=== PATIENT | female | born 1975 | race Caucasian/White ===

== ENCOUNTER 2017-03-14 15:44 | Emergency (ER) | payer BC ==
[2017-03-14 15:58] VITALS: BP 98/68; PULSE 104; TEMP 99.1; BMI 25.8
--- NOTE | 2017-03-14 16:56 | PDOC ---
Attending Attestation - Resident Resident Name: Noah Burton - ED Attending Attestation I have performed the following: I have examined & evaluated the patient, The case was reviewed & discussed with the resident, I agree w/resident's findings & plan, Exceptions are as noted - HPI HPI: 41 yo F history hypothyroid presents with epigastric pain and diarrhea for the past few days. She denies fever, vomiting. She states that the pain is colicky and radiates diffusely. No prior similar symptoms. She has history of 2 c- sections and a cholecystectomy. She still has her appendix. - Physicial Exam PE: GENERAL: Awake, alert, and fully oriented. Appears uncomfortable. HEAD: No signs of trauma EYES: PERRLA, EOMI, sclera anicteric, conjunctiva clear ENT: Auricles normal inspection, hearing grossly normal, nares patent, oropharynx clear without exudates. Dry mucosa NECK: Normal ROM, supple, no lymphadenopathy, JVD, or masses LUNGS: Breath sounds equal, clear to auscultation bilaterally. No wheezes, and no crackles HEART: Regular rate and rhythm, normal S1 and S2, no murmurs, rubs or gallops ABDOMEN: Soft, +epigastric and RLQ tenderness with guarding, hyperactive bowel sounds. No rebound. No masses EXTREMITIES: Normal range of motion, no edema. No clubbing or cyanosis. No cords, erythema, or tenderness NEUROLOGICAL: Cranial nerves II through XII grossly intact. Normal speech, normal gait SKIN: Warm, Dry, normal turgor, no rashes or lesions noted. - Medical Decision Making 41 yo F history prior abdominal surgeries presents with abd pain and diarrhea. Diffusely tender, but worse in RLQ and epigastric area. Will send labs including CBC, CMP, lipase, and UA. Will obtain CT to r/o SBO vs appy.
[2017-03-14] MEDS ORDERED: SODIUM CHLORIDE 0.9% 1000 ML INFUS.BAG IV ONE (17:06)
[2017-03-14] MEDS ORDERED: ONDANSETRON 4 MG/2 ML VIAL IVPUSH ONE (17:06)
--- NOTE | 2017-03-14 17:20 | PDOC ---
History of Present Illness - General Chief Complaint: Pain, Acute Stated Complaint: ABD PAIN Time Seen by Provider: 03/14/17 16:51 History Source: Patient Exam Limitations: No Limitations - History of Present Illness Initial Comments: 03/14/17 17:12 The patient is a 41F with a PMH of hypothyroidism who is presenting with epigastric pain and diarrhea x 3 days. The pain and diarrhea has been constant, is worse today, and now is radiating everywhere (nowhere specific). She has 2 episodes of questionable syncope today, with no aura and no disorientation after the episode. She states the first time she was laying down and then was awoken up by her neice, and the second time she was on the stairs and felt lightheaded then sat down for 5 minutes. No head trauma and no LOC. She is unsure if the pain is related to her food, but she states that she may have eaten some weird foods when she traveled to [place] and came back on Friday. No sick contacts. PSH: cholecystectomy and 2 CS Allergies: NKDA Social: none Past History - Past Medical History Allergies/Adverse Reactions: Allergies Allergy/AdvReac Type Severity Reaction Status Date / Time No Known Allergies Allergy Verified 03/14/17 15:55 Seizures: Yes - Surgical History Cholecystectomy: Yes - Psycho/Social/Smoking Cessation Hx Suicidal Ideation: No Smoking History: Never smoked Review of Systems - Review of Systems Able to Perform ROS?: Yes Is the patient limited [place] proficient: No Constitutional: Yes: Fever. No: Chills Respiratory: No: Shortness of Breath Cardiac (ROS): No: Chest Pain ABD/GI: Yes: Diarrhea, Nausea, Vomiting, Other (Epigastric abd pain). No: Constipated : No: Burning, Dysuria, Discharge Neurological: Yes: Weakness *Physical Exam - Vital Signs Last Vital Signs Temp Pulse Resp BP Pulse Ox 99.1 F 104 H 16 98/68 99 03/14/17 15:55 03/14/17 15:55 03/14/17 15:55 03/14/17 15:55 03/14/17 15:55 - Physical Exam General Appearance: Yes: Nourished, Appropriately Dressed, Mild Distress. No: Apparent Distress, Disheveled, Alcohol on Breath, Obese, Thin HEENT: positive: Normal Voice Respiratory/Chest: positive: Lungs Clear, Normal Breath Sounds. negative: Chest Tender, Respiratory Distress Cardiovascular: positive: Regular Rhythm, Regular Rate, S1, S2 Gastrointestinal/Abdominal: positive: Tender (epigastric and periumbilical), Flat, Soft, Guarding, Rebound, Tenderness Musculoskeletal: negative: CVA Tenderness (R), CVA Tenderness (L) Extremity: positive: Normal Inspection, Normal Range of Motion. negative: Pedal Edema, Swelling Integumentary: positive: Normal Color, Dry, Warm Neurologic: positive: Fully Oriented, Alert, Normal Mood/Affect, Motor Strength 5/5
[2017-03-14] MEDS ORDERED: ONDANSETRON 4 MG/2 ML VIAL ONE (17:24)
[2017-03-14 17:42] LABS: BASOPHIL 0.3 % (0-2.0); EOSINOPHIL 0.5 % (0-4.5); MCH 29.3 pg (25.7-33.7); MCHC 33.4 g/dl (32.0-36.0); MEAN CELL VOLUME 87.7 fl (80-96); MEAN PLT VOLUME 8.4 fl (7.5-11.1); NEUTROPHILS 87.2 % (42.8-82.8); PLATELET COUNT 166 K/MM3 (134-434); RDW 13.2 % (11.6-15.6)
[2017-03-14] MEDS ORDERED: morphine CARPU-JECT 4 MG/1 ML DISP.SYRIN IVPUSH ONE (18:07)
[2017-03-14] MEDS ORDERED: morphine CARPU-JECT 4 MG/1 ML DISP.SYRIN ONE (18:09)
[2017-03-14 18:17] LABS: ALBUMIN 3.7 g/dl (3.4-5.0); ANION GAP 10 (8-16); CALCIUM 8.1 mg/dL (8.5-10.1); CO2 19 mmol/L (21-32); CREATININE 0.6 mg/dL (0.55-1.02); GLUCOSE,RANDOM 104 mg/dL (74-106); SGOT/AST 21 U/L (15-37); SGPT/ALT 31 U/L (12-78)
[2017-03-14 18:19] LABS: ALK PHOS 65 U/L (45-117); BILIRUBIN,TOTAL 0.3 mg/dL (0.2-1.0); TOT PROT 7.2 g/dl (6.4-8.2)
[2017-03-14 19:43] LABS: URINE APPEARANCE CLEAR; URINE BILIRUBIN NEGATIVE (NEGATIVE); URINE BLOOD 1+ (NEGATIVE); URINE COLOR COLORLESS; URINE GLUCOSE (UA) NEGATIVE (NEGATIVE); URINE KETONE NEGATIVE (NEGATIVE); URINE LEUK ESTERASE NEGATIVE (NEGATIVE); URINE NITRITE NEGATIVE (NEGATIVE); URINE PROTEIN NEGATIVE (NEGATIVE); URINE UROBILINOGEN NEGATIVE mg/dL (0.2-1.0)
[2017-03-14 19:46] LABS: URINE BACTERIA RARE /hpf (NONE SEEN); URINE RBC <1 /hpf (0-3)
--- NOTE | 2017-03-14 21:49 | PDOC ---
*Physical Exam - Vital Signs Last Vital Signs Temp Pulse Resp BP Pulse Ox 99.1 F 104 H 16 98/68 99 03/14/17 15:55 03/14/17 15:55 03/14/17 15:55 03/14/17 15:55 03/14/17 15:55 ED Treatment Course - LABORATORY CBC & Chemistry Diagram: 03/14/17 17:30 03/14/17 17:30 - ADDITIONAL ORDERS Additional order review: Laboratory Results 03/14/17 03/14/17 03/14/17 19:05 17:30 17:30 Sodium 136 Potassium 3.9 Chloride 107 Carbon Dioxide 19 L Anion Gap 10 BUN 11 Creatinine 0.6 Creat Clearance w eGFR > 60 Random Glucose 104 Calcium 8.1 L Total Bilirubin 0.3 AST 21 ALT 31 Alkaline Phosphatase 65 Total Protein 7.2 Albumin 3.7 Lipase 124 Serum , Qual Negative Urine Color Colorless Urine Appearance Clear Urine pH 6.0 Urine Protein Negative Urine Glucose (UA) Negative Urine Ketones Negative Urine Blood 1+ H Urine Nitrite Negative Urine Bilirubin Negative Urine Urobilinogen Negative Ur Leukocyte Esterase Negative Urine RBC <1 Urine WBC None Urine Bacteria Rare 03/14/17 17:30 RBC 4.49 MCV 87.7 MCHC 33.4 RDW 13.2 MPV 8.4 Neutrophils % 87.2 H Lymphocytes % 5.7 L Monocytes % 6.3 Eosinophils % 0.5 Basophils % 0.3 - RADIOLOGY Radiology Studies Ordered: Category Date Time Status ABDOMEN & PELVIS CT WITH CONTR [CT] Stat CT Scan 03/14/17 19:49 Completed - Medications Given in the ED: ED Medications Discontinued Medications Generic Name Dose Route Start Last Admin Trade Name Bi PRN Reason Stop Dose Admin Morphine Sulfate 4 mg 03/14/17 18:07 03/14/17 18:20 Morphine Injection - IVPUSH 03/14/17 18:08 4 mg ONCE ONE Administration Ondansetron HCl 4 mg 03/14/17 17:06 03/14/17 17:36 Zofran Injection IVPUSH 03/14/17 17:07 4 mg ONCE ONE Administration Sodium Chloride 1,000 ml 03/14/17 17:06 03/14/17 17:36 Normal Saline - IV 03/14/17 17:07 1,000 ml ONCE ONE Administration Medical Decision Making - Medical Decision Making Patient signed out to me from Dr. Burton at 19:05 unstable condition pending Abdominal CT and UA results. UA returned negative and CT demonstrated some mild fluid distension of the small bowels without ball wall edema with a left ovarian 2cm cyst. Patient will be discharged with immodium and zofran. 03/14/17 21:43 03/14/17 21:49 *DC/Admit/Observation/Transfer Diagnosis at time of Disposition: Gastroenteritis - Discharge Dispostion Disposition: HOME Condition at time of disposition: Improved Admit: No - Patient Instructions Printed Discharge Instructions: Viral Gastroenteritis Additional Instructions: You were seen for abdominal pain, nausea, and diarrhea which we believe is probably a mild viral infection of your stomach that should resolve within a few days. Please take imodium and Zofran for your nausea and diarrhea. Please return if you have worsening pain or your nausea and diarrhea do not get better after a few days of treatment. - Attestations Physician Attestion: 03/14/17 21:55 I, Dr. Brittany Recinos, attest that this document has been prepared under my direction and personally reviewed by me in its entirety. I further attest, that it accurately reflects all work, treatment, procedures and medical decision -making performed by me.
--- NOTE | 2017-03-16 18:47 | EKG ---
Test Reason : Blood Pressure : / mmHG Vent. Rate : 080 BPM Atrial Rate : 080 BPM P-R Int : 158 ms QRS Dur : 084 ms QT Int : 406 ms P-R-T Axes : 060 004 016 degrees QTc Int : 468 ms NORMAL SINUS RHYTHM NORMAL ECG NO PREVIOUS ECGS AVAILABLE CLINICAL CORRELATION IS RECOMMENDED Confirmed by MARIA ELENA AGGARWAL MD ([id number] on 03/16/2017 6:46:44 PM Referred By: Confirmed By:MARIA ELENA AGGARWAL MD
== END 2017-03-14 22:03 | disposition home or self-care (01) ==
LOC: JER 15:44
PROC: 3E033NZ Introduction of Analgesics, Hypnotics, Sedatives into Peripheral Vein, Percutaneous Approach (ICD-10-PCS; principal; 2017-03-14)
PROC: 3E033GC Introduction of Other Therapeutic Substance into Peripheral Vein, Percutaneous Approach (ICD-10-PCS; 2017-03-14)
DX: K52.9 Noninfective gastroenteritis and colitis, unspecified (principal); N83.202 Unspecified ovarian cyst, left side
CPT/HCPCS: 36415; 74177-TC; 80053; 81003; 81015; 83690; 84703; 85025; 93005; 93010; 99283-25